=== PATIENT | male | born 1990 | race Two or more races ===

== ENCOUNTER 2022-05-31 20:40 | Emergency (ER) | payer OTHER ==
[~2022-05-31] VITALS: Ht 167.6 cm; Wt 79.4 kg
[2022-05-31] MEDS ORDERED: ZOFRAN8 MG PO (22:19)
[2022-05-31] MEDS ORDERED: PEPCID AC20 MG PO (22:19)
== END 2022-05-31 23:30 | disposition home or self-care (01) ==
LOC: ER 20:40
DX: K52.9 Noninfective gastroenteritis and colitis, unspecified (principal)